=== PATIENT | male | born 1990 | race Two or more races ===

== ENCOUNTER 2017-04-24 19:55 | Emergency (ER) | payer OTHER ==
[~2017-04-24] VITALS: Ht 167.6 cm; Wt 81.6 kg
[2017-04-24] MEDS ORDERED: PROZAC10 MG ORAL (20:09)
[2017-04-24] MEDS ORDERED: SEROQUEL200 MG ORAL (20:09)
[2017-04-24] MEDS ORDERED: GABAPENTIN800 MG ORAL (20:09)
[2017-04-24 20:14] VITALS: BP 118/75
[2017-04-24] MEDS ORDERED: Bacitracin Oint UD TOPIC ONE (20:30)
[2017-04-24] MEDS ORDERED: Lidocaine 1% MPF 10mg/ml 5ml INJ ONE (20:30)
[2017-04-24] MEDS ORDERED: IBUPROFEN600 MG ORAL (21:01)
[2017-04-24 21:10] VITALS: BP 118/75
--- NOTE | 2017-04-24 21:29 | Emergency Room Report ---
History of Present Illness General Chief Complaint: Laceration Source: Patient Present Illness [facility] The patient is a 26 old male presenting for left thumb laceration. He states that this occurred several hours prior to arrival as she was opening up a bottle with his bare hand. Patient is right-hand dominant. Pain is a 6/10 dull ache does not radiate. Worse with touch. He noticed bleeding to the area. He denies numbness or tingling. Last tetanus shot less than 10 years prior. Allergies: Coded Allergies: No Known Allergies (Unverified , 04/24/17) Patient History Past Medical History: see triage record Pertinent Family History: none Reviewed Nursing Documentation: PMH: Agreed, PSxH: Agreed Nursing Documentation-PMH History Of Psychiatric Problem: Yes - DEPRESSION,ANXIETY Review of Systems All Other Systems: negative except mentioned in HPI Physical Exam Vital Signs Date Time Temp Pulse Resp B/P (MAP) Pulse Ox O2 Delivery O2 Flow Rate FiO2 04/24/17 20:01 97.2 108 18 118/75 97 Room Air Sp02 EP Interpretation: reviewed, normal General Appearance: no apparent distress, alert, GCS 15, non-toxic Head: normocephalic, atraumatic Eyes: bilateral eye normal inspection, bilateral eye PERRL ENT: hearing grossly normal, normal pharynx, no angioedema, normal voice Musculoskeletal: normal range of motion, tender - TTP over the L medial thumb where laceration is Neurologic: alert, oriented x3, responsive, motor strength/tone normal, sensory intact, speech normal Psychiatric: judgement/insight normal, memory normal, mood/affect normal, no suicidal/homicidal ideation Skin: laceration - 5cm linear laceration of the L medial thumb Lymphatic: no adenopathy Procedures Splinting Splinting : Consent: Verbal Location: L thumb Pre-Made Type: metal Pre-Proc Neuro Vasc Exam: normal Post-Proc Neuro Vasc Exam: normal Patient Tolerated: Well Complications: None Laceration/Wound Repair Laceration/Wound Repair : Consent: Verbal Wound Location: upper extremity Wound's Depth, Shape: superficial, linear Wound Length (cm): 5 Wound Explored: clean Irrigated w/ Saline (ccs): 100 Betadine Prep?: Yes Anesthesia: 1% Lidocaine Volume Anesthetic (ccs): 5 Wound Debrided: minimal Wound Repaired With: sutures Suture Size/Type: 5:0, proline Number of Sutures: 6 Layer Closure?: No Sterile Dressing Applied?: Yes Splint Applied?: Yes Type of Splint Applied: finger splint Sling Applied?: No Patient Tolerated: Well Complications: None Medical Decision Making PA Attestation Dr. Bazan is my supervising physician. Patient management was discussed with my supervising physician Diagnostic Impression: Primary Impression: Thumb laceration Qualified Codes: S61.012A - Laceration without foreign body of left thumb without damage to nail, initial encounter ER Course The patient is a 26 old male presenting for left thumb laceration Ddx considered include but not limited to fracture, tendon/ligament injury, avulsion, nerve damage PE: NAD L thumb: 5cm linear laceration to medial area. FulL AROM intact. SILT. Minimal bleeding. The wound was irrigated with normal saline and cleaned with betadine. A 27g needle was used to administer 5mL of lidocaine w.o epi for digital block. 3 sutures were placed with 5-0 prolene. The wound was well approximated and the patient tolerated the procedure well. The wound was then cleaned and bacitracin was applied. A metal finger splint was applied The patient will continue to keep the wound clean and dry and will followup with PMD. Suture instructions provided. ER precautions are given Last Vital Signs Date Time Temp Pulse Resp B/P (MAP) Pulse Ox O2 Delivery O2 Flow Rate FiO2 04/24/17 21:10 97.2 108 18 118/75 97 Room Air Status: improved Disposition: HOME, SELF-CARE Condition: Improved Scripts Ibuprofen* (MOTRIN*) 600 Mg Tablet 600 MG ORAL Q8H Y for For Pain, #30 TAB 0 Refills Prov: KOMAL SAUCEDA 04/24/17 Patient Instructions: Laceration Care, Adult Additional Instructions: I discussed my findings with the patient. All questions and concerns have been answered. Treatment and medication compliance have been addressed. I advised the patient that they need to follow up with PMD in 7 days for wound check and suture removal. If you are unable to see PMD, return to the ED in 7 days. Return to ED if pain remains or worsens, you notice discharge from the wound, the wound continues to bleed, the suture/s fall out, you notice a fever or chills, or for any reason. Patient is advised to keep the wound clean and apply an antibacterial ointment. Patient verbalized understanding of discharge instructions. KOMAL SAUCEDA Apr 24, 2017 21:29
== END 2017-04-24 21:12 | disposition home or self-care (01) ==
LOC: EMR 20:44
DX: S61.012A Laceration without foreign body of left thumb without damage to nail, initial encounter (principal); W26.0XXA Contact with knife, initial encounter; Y92.89 Other specified places as the place of occurrence of the external cause
CPT/HCPCS: 12002; 99284; Z7502; 29130